=== PATIENT | female | born 1985 | race Two or more races ===

== ENCOUNTER 2020-03-11 10:49 | Day surgery (SDC) | payer OTHER ==
[2020-03-04 12:19] VITALS: BMI 27.1
[2020-03-11 11:18] VITALS: TEMP 98.1
[2020-03-11 12:57] VITALS: BP 116/78; PULSE 81
[2020-03-11] MEDS ORDERED: LOCK ITEM NR ONE (14:06)
--- NOTE | 2020-03-13 18:18 | PATH ---
Surgical Pathology Report Patient Name: TRISTAN HOBBS [facility]. Rec. #: [id number] /Age/Gender: 1985 (Age: 34) / F Account: [id number] Location: [facility] Taken: 03/11/2020 Received: 03/11/2020 Reported: 03/13/2020 Physicians: Sarah Moore M.D. Specimen(s) Received A: SECOND PORTION DUODENUM B: GASTRIC ANTRUM C: GE JUNCTION Clinical History Epigastric pain, dyspepsia Postoperative diagnosis: Gastritis Final Diagnosis A. SECOND PORTION OF DUODENUM, BIOPSY: DUODENAL MUCOSA WITH NO SIGNIFICANT PATHOLOGIC CHANGE. NO HISTOLOGIC EVIDENCE OF INTRAEPITHELIAL LYMPHOCYTOSIS. B. GASTRIC ANTRUM, BIOPSY: GASTRIC MUCOSA WITH CHRONIC GASTRITIS. IMMUNOSTAIN FOR H. PYLORI IS NEGATIVE. NEGATIVE FOR INTESTINAL METAPLASIA. C. GE JUNCTION, BIOPSY: GASTROESOPHAGEAL JUNCTIONAL MUCOSA WITH REFLUX ESOPHAGITIS. NEGATIVE FOR INTESTINAL METAPLASIA. Electronically Signed Matt Ryan M.D. Gross Description A. Received in formalin, labeled "biopsy second portion of duodenum" is a welsh, irregular portion of soft tissue measuring 0.3 cm. in greatest dimension. The specimen is submitted in toto in one cassette. B. Received in formalin, labeled "biopsy gastric antrum" is a welsh, irregular portion of soft tissue measuring 0.2 cm. in greatest dimension. The specimen is submitted in toto in one cassette. C. Received in formalin, labeled "biopsy GE junction" is a welsh, irregular portion of soft tissue measuring 0.4 cm. in greatest dimension. The specimen is submitted in toto in one cassette. 03/12/2020 [facility]03/12/2020
== END 2020-03-11 13:00 | disposition home or self-care (01) ==
LOC: FASU-ENDO 10:49
PROVIDERS: ATTEND Internal Medicine Gastroenterology
PROC: 0DB68ZX Excision of Stomach, Via Natural or Artificial Opening Endoscopic, Diagnostic (ICD-10-PCS; 2020-03-11)
PROC: 0DB58ZX Excision of Esophagus, Via Natural or Artificial Opening Endoscopic, Diagnostic (ICD-10-PCS; 2020-03-11)
PROC: 0DB98ZX Excision of Duodenum, Via Natural or Artificial Opening Endoscopic, Diagnostic (ICD-10-PCS; principal; 2020-03-11 12:12)
DX: K29.50 Unspecified chronic gastritis without bleeding (principal); K21.0 Gastro-esophageal reflux disease with esophagitis; R12 Heartburn
CPT/HCPCS: 84703; 88305-TC; 88342-TC

== ENCOUNTER 2020-08-02 12:21 | Emergency (ER) | payer OTHER ==
[2020-08-02 12:28] VITALS: BP 117/50; PULSE 68; TEMP 97; BMI 27.4
[2020-08-02 13:35] LABS: URINE APPEARANCE CLEAR; URINE BILIRUBIN NEGATIVE (NEGATIVE); URINE COLOR YELLOW; URINE GLUCOSE (UA) NEGATIVE (NEGATIVE); URINE KETONE NEGATIVE (NEGATIVE); URINE LEUK ESTERASE NEGATIVE (NEGATIVE); URINE NITRITE NEGATIVE (NEGATIVE); URINE PROTEIN NEGATIVE (NEGATIVE); URINE UROBILINOGEN 0.2 mg/dL (0.2-1.0)
[2020-08-02 13:38] LABS: HCG,QUALITATIVE URINE Negative
== END 2020-08-02 13:50 | disposition home or self-care (01) ==
LOC: JERFT 12:21
DX: N94.10 Unspecified dyspareunia (principal); B37.9 Candidiasis, unspecified
CPT/HCPCS: 36415; 81003; 84703; 87491; 87591; 99283-25

== ENCOUNTER 2022-01-06 07:06 | Emergency (ER) | payer OTHER ==
[2022-01-06 07:57] VITALS: BMI 25.7
[2022-01-06] MEDS ORDERED: IBUPROFEN 600 MG TABLET (FP) PO ONE ×2 (08:26→08:27)
[2022-01-06] MEDS ORDERED: LIDOCAINE 5% TOPICAL PATCH TP ONE (09:18)
[2022-01-06] MEDS ORDERED: LIDOCAINE 5% TOPICAL PATCH ONE (09:20)
[2022-01-06 10:12] VITALS: BP 127/65; PULSE 69; TEMP 98.3
[2022-01-06] MEDS ORDERED: LIDOCAINE PATCH REMOVAL MC ONE (22:00)
== END 2022-01-06 10:12 | disposition home or self-care (01) ==
LOC: JER 07:06
DX: R50.9 Fever, unspecified (principal); M79.10 Myalgia, unspecified site; J09.X2 Influenza due to identified novel influenza A virus with other respiratory manifestations
CPT/HCPCS: 0241U-QW; 99283-25

== ENCOUNTER 2024-01-12 01:43 | Emergency (ER) | payer SELFPAY ==
[2024-01-12 02:14] VITALS: BP 105/67; PULSE 66; RESP 12; TEMP 97.7; BMI 29.2
[2024-01-12 02:43] LABS: BASO % 0.6 % (0-2.0); EOS % 2.4 % (0-4.5); HEMATOCRIT 31.5 % (32.4-45.2); HEMOGLOBIN 10.6 GM/dL (10.7-15.3); MCH 25.9 pg (25.7-33.7); MCHC 33.6 g/dl (32.0-36.0); MEAN CELL VOLUME 77.2 fl (80-96); MEAN PLT VOLUME 7.7 fl (7.5-11.1); MONO % 4.6 % (3.8-10.2); NEUT % 67.4 % (42.8-82.8); PLATELET COUNT 288 10^3/uL (134-434); RBC 4.07 M/mm3 (3.60-5.2); RDW 16.1 % (11.6-15.6); WHITE BLOOD COUNT 7.1 K/mm3 (4.0-10.0)
[2024-01-12 02:55] LABS: POTASSIUM 3.5 mmol/L (3.5-5.1)
[2024-01-12 02:57] LABS: CALCIUM 8.6 mg/dL (8.5-10.1)
[2024-01-12 02:58] LABS: ALBUMIN 3.3 g/dl (3.4-5.0); BLOOD UREA NITROGEN 11.9 mg/dL (7-18); MAGNESIUM 1.9 mg/dL (1.8-2.4)
[2024-01-12 03:01] LABS: CREATININE 0.5 mg/dL (0.55-1.3)
[2024-01-12 03:02] LABS: BILIRUBIN,TOTAL 0.2 mg/dL (0.2-1)
[2024-01-12 03:03] LABS: TOT PROT 6.4 g/dl (6.4-8.2)
== END 2024-01-12 04:03 | disposition home or self-care (01) ==
LOC: JER 01:43
DX: R53.1 Weakness (principal); R40.0 Somnolence
CPT/HCPCS: 36415; 71045-TC-FY; 80053; 82962; 83735; 84100; 84703; 85025; 93005; 93010; 99285-25